=== PATIENT | male | born 1960 | race Caucasian/White ===

== ENCOUNTER 2022-10-22 21:20 | Emergency (ER) | payer MEDICARE, OTHER, SELFPAY ==
--- NOTE | 2022-10-22 | ECG_ITS ---
Test Reason : DVT Blood Pressure : / mmHG Vent. Rate : 106 BPM Atrial Rate : 106 BPM P-R Int : 176 ms QRS Dur : 100 ms QT Int : 350 ms P-R-T Axes : 071 069 035 degrees QTc Int : 464 ms Sinus tachycardia Otherwise normal ECG No previous ECGs available Referred By: Generic ED Physician Electronically Signed By:DANITA WALSH MD
--- NOTE | ~2022-10-22 | US_ITS ---
EXAMINATION: US VENOUS ULTRASOUND WITH DOPPLER LOWER EXTREMITY, RIGHT CLINICAL INFORMATION: Edema and pain COMPARISON: None available. TECHNIQUE: Ultrasound of the deep veins is performed from the hip to the calf with compression sonography and color and pulse Doppler assessment. Spectral analysis with color-flow imaging is performed. FINDINGS: There is normal venous compression and respiratory variation and augmented flow. The visualized common femoral vein, superficial femoral vein, profunda femoral vein, popliteal vein, and the trifurcation region shows no evidence of deep venous thrombosis. There is no significant popliteal fossa cyst. If the patient's symptoms persist, followup ultrasound in 5 days 7 days might be of value to exclude proximal propagation from a non-visualized calf vein. US/US venous duplex LE RT IMPRESSION: No DVT demonstrated in the right lower extremity.
--- NOTE | ~2022-10-22 | US_ITS ---
EXAMINATION: US ARTERIAL DUPLEX LOWER EXTREMITY, RIGHT CLINICAL INFORMATION: Pain COMPARISON: None TECHNIQUE: Grayscale and color Doppler sonographic evaluation with spectral analysis of the right lower extremity FINDINGS: RIGHT (PSV/Waveform): * IS ANALYST: 119 cm/s, triphasic * PFA: 67 cm/s, biphasic * Proximal SFA: 153 cm/s, monophasic * Mid SFA: 128 cm/2, monophasic * Distal SFA: 151 cm/s, monophasic * Popliteal: 132 cm/s, monophasic * CASINO DUTY MANAGER: 113 cm/s, monophasic US/US arterial duplex LE RT IMPRESSION: * Patent right lower extremity arteries. * No hemodynamically significant stenosis evident.
--- NOTE | ~2022-10-22 | XR_ITS ---
EXAMINATION: XR CHEST CLINICAL INFORMATION: Possible clots COMPARISON: None available. TECHNIQUE: 2 views of the chest were obtained. FINDINGS: Normal symmetric lung volumes. No parenchymal consolidation. No pleural effusion. No pneumothorax. Cardiomediastinal silhouette and pulmonary vascularity are within normal limits. No acute osseous abnormalities. XR/XR chest 2V IMPRESSION: No acute findings
[2022-10-22 21:22] VITALS: BP 165/94; PULSE 108; RESP 18; TEMP 36.1; O2SAT 98; BMI 24.4
[2022-10-22 22:26] LABS: MANUAL DIFF FLAG NO
[2022-10-22 22:32] LABS: Basophils Percent Auto 0.4 % (0-2); Eosinophils Absolute Auto 0.3 X10*3/uL (0.0-0.4); Eosinophils Percent Auto 3.6 % (0-4); Hematocrit 42.2 % (42.0-52.0); Hemoglobin 14.4 g/dl (14.0-18.0); Imm Gran Abs Auto 0.01 X10*3/uL (0.00-0.03); Imm Gran Pct Auto 0.1 % (0.0-0.4); Lymphocytes Absolute Auto 1.7 X10*3/uL (1.2-4.9); Lymphocytes Percent Auto 22.9 % (20-40); Mean Corpuscular HGB Conc 34.1 g/dl (31.0-36.0); Mean Corpuscular Hemoglobin 31.2 pg (27.0-33.0); Mean Corpuscular Volume 91.3 fL (80.0-98.0); Mean Platelet Volume 9.9 fL (9.4-12.4); Monocytes Absolute Auto 0.7 X10*3/uL (0.1-1.2); Monocytes Percent Auto 9.8 % (2-11); Neutrophils Absolute Auto 4.6 x10*3/uL (2.0-8.3); Neutrophils Percent Auto 63.2 % (45-73); Platelet Count 197 X10*3/uL (160-400); Red Blood Count 4.62 X10*6/uL (4.60-5.80); Red Cell Distribution Width 13.2 % (11.0-16.0); White Blood Count 7.2 X10*3/uL (4.8-10.8)
[2022-10-22 22:36] VITALS: BP 145/83; PULSE 108; RESP 17; TEMP 36.9; O2SAT 95
[2022-10-22 22:43] LABS: Anion Gap 14 (12-20); Blood Urea Nitrogen 21 mg/dL (9-16); Calcium 9.5 mg/dL (8.4-10.2); Carbon Dioxide 25 mmol/L (22-29); Chloride 106 mmol/L (96-108); Creatinine Clr Calc Pharmacy 88.1; Estimated Glomerular Filt Rate > 60; Glucose Random 78 mg/dL (60-115); Potassium 3.7 mmol/L (3.3-5.1); Sodium 141 mmol/L (135-145)
[2022-10-22 22:52] LABS: Troponin-I High Sensitivity 4.9 ng/L (<3.5-35.0)
--- NOTE | 2022-10-22 23:01 | ED_ITS ---
HPI - General Adult General Chief complaint: General Medical Stated complaint: possible DTV Time Seen by Provider: 10/22/22 23:01 Source: patient Mode of arrival: ambulatory Limitations: no limitations History of Present Illness HPI narrative: Patient is a 61 year old assigned male at with a history of a recent venous procedure on his right lower leg presenting to the emergency department today with right lower leg pain and swelling. Patient states that on 10/19/2022 he had a venous procedure on his right lower leg and everything was fine however, on 10/21/2022 he began to have swelling and redness. Patient states that he is on a daily eliquis of 2.5mg. Patient states that his vascular surgeon follows through [facility]. Patient denies any dizziness, lightheadedness, abdominal pain, nausea, vomiting, fever, chills, blurry vision, double vision, loss of vision, chest pain, difficulty breathing, shortness of breath, back pain, night sweats, pain with urination, increased urinary frequency, increased urinary urgency, blood in his urine or stool, syncope or a near syncopal episode, recent trauma or falls, bowel incontinence, bladder incontinence, bowel retention, bladder retention, or any other complaints at this time. Onset (ago): day(s) (2) Location: right and lower extremity Radiation: non-radiation Severity: mild Severity scale (1-10): 3 Quality: aching and dull Pain Consistency: constant Relieving factors: none Exacerbating factors: none Associated symptoms: denies other symptoms Treatments prior to arrival: none Related Data Previous Rx's Medication Instructions Recorded doxycycline hyclate 100 mg tablet 100 mg PO BID 7 days #14 tabs 10/23/22 prednisone 20 mg tablet 20 mg PO DAILY 7 days #7 tabs 10/23/22 triamcinolone acetonide 0.1 % 1 appl topical DAILY #400 grams 10/23/22 topical cream Allergies Allergy/AdvReac Type Severity Reaction Status Date / Time No Known Allergies Allergy Verified 10/22/22 23:11 Review of Systems Constitutional: Constitutional: Reports no additional constitutional complaints, Denies chills, Denies fever(s) and Denies night sweats Eyes: Eyes: Reports no additional eye complaints, Denies blurry vision, Denies change in vision, Denies diplopia, Denies eye discharge, Denies loss of vision and Denies eye pain ENT: Denies dizziness Cardiovascular: Cardiovascular: Reports no additional cardiovascular complaints, Denies chest pain, Denies lightheadedness, Denies Loss of Consciousness and Denies dyspnea Respiratory: Respiratory: Reports no additional respiratory complaints and Denies dyspnea Gastrointestinal: Gastrointestinal: Reports no additional gastrointestinal complaints, Denies abdominal pain, Denies melena, Denies hematochezia, Denies change in bowel habits and Denies change in stool character Genitourinary: Genitourinary: Reports no additional male genitourinary comp laints, Denies hematuria, Denies oliguria, Denies difficulty urinating, Denies dysuria, Denies urinary frequency, Denies urinary hesitancy, Denies urinary incontinence and Denies urinary urgency Musculoskeletal: Musculoskeletal: Reports no additional musculoskeletal complaints, Denies numbness and Denies tingling Integumentary/Breasts: Comments: right lower leg swelling, redness, and warmth Neurologic: Denies dizziness, Denies loss of vision, Denies numbness and Denies tingling Psychiatric: Psychiatric: Reports no additional psychiatric complaints Endocrine: Endocrine: Reports no additional endocrine complaints Hematologic/Lymphatic: Hematologic/Lymphatic: Reports no additional hematologic/lymphatic complaints Allergic/Immunologic: Allergic/Immunologic: Reports no additional allergic/immunologic complaints PMFSH Past Medical History Attestation statement: The following information was validated with the patient. Source: old records reviewed and nursing notes reviewed Social History Social History Advance Directives: No Advance Directives Information Provided: No Physical Exam ED Vital Signs: Vital Signs - 24 hr 10/22/22 21:22 10/22/22 22:36 Temperature 97 F 98.4 F Pulse Rate 108 H 108 H Respiratory Rate 18 17 Blood Pressure 165/94 H 145/83 H Pulse Oximetry 98 95 Oxygen Delivery Method Room Air Room Air BMI result Body Mass Index 24.4 Const General: cooperative, no acute distress, alert and awake Nutritional Appearance: well nourished Orientation/consciousness: patient oriented x3 Limitations: no limitations HENMT Head: Yes normal to inspection and Yes atraumatic Ears: hearing grossly normal bilaterally and external ears normal General nose exam: Normal external nose present, no nasal discharge noted and no epistaxis Face and sinus: Yes normal facial exam, No abrasion and No laceration Mouth: Normal oral and palatal mucosa present, no drooling and no muffled voice Eyes General: appearance normal, both eyes and all related structures Periorbital: periorbital findings normal Eyelids: Yes eyelids normal Conjunctivae: conjunctivae normal Pupils: Equal, round and reactive pupils present EOM: EOMs intact bilaterally Neck Neck: Yes normal visual inspection, Yes full ROM and Yes no lymphadenopathy Chest Chest palpation & inspection: normal inspection of the chest Resp Effort & Inspection: normal respiratory effort and able to speak in complete sentences GI Inspection: Yes normal to inspection Neuro General: patient oriented x3 and moves all extremities Cranial nerves: Yes Equal, round and reactive pupils present Cognition (Neuro): normal cognition Motor exam (neuro): 5/5 motor strength present throughout Sensory Exam: Normal double simultaneous stimulation for sensation Coordination: [id number] test normal Extrem Other: minimal swelling, warmth, and erythema present to the right lower leg General: Yes full ROM and Yes capillary refill normal Psych Appearance: grossly normal Mental Status: mental status grossly normal Affect: normal affect Attitude: cooperative Thought process: Normal thought process present Thought content: Normal thought content present Insight: Good insight present (Psych) Medical Decision Making Medical Decision Making MDM Narrative: Patient is a 61 year old assigned male at with a history of recent venous procedure presenting to the emergency department today with right lower leg redness, warmth, and swelling. Patient's physical exam was as noted in the physical exam portion of this chart. Patient's blood work was unremarkable. Patient's RLE US showed no DVT and showed good arterial flow. I explained my physical exam findings as well as all test results to the patient. I answered all questions asked by the patient. Patient's clinical presentation is consistent with cellulitis vs. phlebitis. Patient also requested triamsinolone cream for an unrelated issue. I stressed the importance of the patient taking his medication as prescribed. I stressed the importance of the patient following up with his primary care provider and his vascular surgeon. I stressed the importance of the patient returning to the emergency department immediately if his symptoms were to worsen or if he were to develop any dizziness, shortness of breath, difficulty breathing, chest pain, blurry vision, loss of vision, nausea, vomiting, abdominal pain, fever, chills, back pain, or any other complaints. Patient verbalized agreement and understanding with this treatment plan and discharge. Differential Diagnosis Differential Diagnoses: The differential diagnosis associated with the presentation includes right lower leg cellulitis, right lower leg phlebitis Admission/Observation Consideration of admission/observation: Escalation of care including admission/observation considered Patient would have been admitted to the hospital had his work up had any findings where hospital admission was appropriate. Lab Data MDM Lab Attestation statement: I reviewed the patient's lab results. My interpretation of these studies and their corresponding values is that they are grossly normal. 10/22/22 22:18 10/22/22 22:18 Labs: Lab Results 10/22/22 10/22/22 10/22/22 Range/Units 22:18 22:18 22:18 WBC 7.2 (4.8-10.8) X10*3/uL RBC 4.62 (4.60-5.80) X10*6/uL Hgb 14.4 (14.0-18.0) g/dl Hct 42.2 (42.0-52.0) % MCV 91.3 (80.0-98.0) fL MCH 31.2 (27.0-33.0) pg MCHC 34.1 (31.0-36.0) g/dl RDW 13.2 (11.0-16.0) % Plt Count 197 (160-400) X10*3/uL MPV 9.9 (9.4-12.4) fL Immature Gran % (Auto) 0.1 (0.0-0.4) % Neut % (Auto) 63.2 (45-73) % Lymph % (Auto) 22.9 (20-40) % [place] % (Auto) 9.8 (2-11) % Eos % (Auto) 3.6 (0-4) % Baso % (Auto) 0.4 (0-2) % Lymph # (Auto) 1.7 (1.2-4.9) X10*3/uL [place] # (Auto) 0.7 (0.1-1.2) X10*3/uL Eos # (Auto) 0.3 (0.0-0.4) X10*3/uL Baso # (Auto) 0.0 (0.0-0.2) X10*3/uL Abs Immat Gran (auto) 0.01 (0.00-0.03) X10*3/uL Absolute Neuts (auto) 4.6 (2.0-8.3) x10*3/uL Absolute Nucleated RBC 0.000 (0.0-0.012) X10*3/uL Nucleated RBC % (auto) 0.0 (0.0-0.2) /100WBC PT 12.0 (10.0-13.1) SEC INR 1.0 (0.9-1.1) Sodium 141 (135-145) mmol/L Potassium 3.7 (3.3-5.1) mmol/L Chloride 106 (96-108) mmol/L Carbon Dioxide 25 (22-29) mmol/L Anion Gap 14 (12-20) BUN 21 H (9-16) mg/dL Creatinine 0.99 (0.5-1.4) mg/dL Estim Creat Clear Calc 88.1 Estimated GFR > 60 Random Glucose 78 (60-115) mg/dL Calcium 9.5 (8.4-10.2) mg/dL Troponin I High Sens (<3.5-35.0) ng/L 10/22/22 Range/Units 22:18 WBC (4.8-10.8) X10*3/uL RBC (4.60-5.80) X10*6/uL Hgb (14.0-18.0) g/dl Hct (42.0-52.0) % MCV (80.0-98.0) fL MCH (27.0-33.0) pg MCHC (31.0-36.0) g/dl RDW (11.0-16.0) % Plt Count (160-400) X10*3/uL MPV (9.4-12.4) fL Immature Gran % (Auto) (0.0-0.4) % Neut % (Auto) (45-73) % Lymph % (Auto) (20-40) % [place] % (Auto) (2-11) % Eos % (Auto) (0-4) % Baso % (Auto) (0-2) % Lymph # (Auto) (1.2-4.9) X10*3/uL [place] # (Auto) (0.1-1.2) X10*3/uL Eos # (Auto) (0.0-0.4) X10*3/uL Baso # (Auto) (0.0-0.2) X10*3/uL Abs Immat Gran (auto) (0.00-0.03) X10*3/uL Absolute Neuts (auto) (2.0-8.3) x10*3/uL Absolute Nucleated RBC (0.0-0.012) X10*3/uL Nucleated RBC % (auto) (0.0-0.2) /100WBC PT (10.0-13.1) SEC INR (0.9-1.1) Sodium (135-145) mmol/L Potassium (3.3-5.1) mmol/L Chloride (96-108) mmol/L Carbon Dioxide (22-29) mmol/L Anion Gap (12-20) BUN (9-16) mg/dL Creatinine (0.5-1.4) mg/dL Estim Creat Clear Calc Estimated GFR Random Glucose (60-115) mg/dL Calcium (8.4-10.2) mg/dL Troponin I High Sens 4.9 (<3.5-35.0) ng/L Independent Interpretation I performed an independent interpretation of an: EKG and Ultrasound Interpretation: My interpretation is in agreement with the radiologist's impression of these imaging studies. - EXAMINATION: US ARTERIAL DUPLEX LOWER EXTREMITY, RIGHT CLINICAL INFORMATION: Pain COMPARISON: None TECHNIQUE: Grayscale and color Doppler sonographic evaluation with spectral analysis of the right lower extremity FINDINGS: RIGHT (PSV/Waveform): *? APPRENTICE PATTERN MAKER: 119 cm/s, triphasic *? PFA: 67 cm/s, biphasic *? Proximal SFA: 153 cm/s, monophasic *? Mid SFA: 128 cm/2, monophasic *? Distal SFA: 151 cm/s, monophasic *? Popliteal: 132 cm/s, monophasic *? ENERGY AUDITOR: 113 cm/s, monophasic US/US arterial duplex LE RT IMPRESSION: *? Patent right lower extremity arteries. *? No hemodynamically significant stenosis evident. Dictated By: Karlos Potts MD Signed By: Electronically signed by Karlos Potts MD 10/23/22 0140 EXAMINATION:? US VENOUS ULTRASOUND WITH DOPPLER LOWER EXTREMITY, RIGHT CLINICAL INFORMATION:? Edema and pain COMPARISON:? None available. TECHNIQUE: Ultrasound of the deep veins is performed from the hip to the calf with compression sonography and color and pulse Doppler assessment. Spectral analysis with color-flow imaging is performed. FINDINGS: There is normal venous compression and respiratory variation and augmented flow. The visualized common femoral vein, superficial femoral vein, profunda femoral vein, popliteal vein, and the trifurcation region shows no evidence of deep venous thrombosis. ? There is no significant popliteal fossa cyst. If the patient's symptoms persist, followup ultrasound in 5 days 7 days might be of value to exclude proximal propagation from a non-visualized calf vein. US/US venous duplex LE RT IMPRESSION: No DVT demonstrated in the right lower extremity. Dictated By: Karlos Potts MD Signed By: Electronically signed by Karlos Potts MD 10/23/22 0140 EXAMINATION: XR CHEST CLINICAL INFORMATION: Possible clots COMPARISON: None available. TECHNIQUE: 2 views of the chest were obtained. FINDINGS: Normal symmetric lung volumes. No parenchymal consolidation. No pleural effusion. No pneumothorax.? Cardiomediastinal silhouette and pulmonary vascularity are within normal limits. No acute osseous abnormalities. XR/XR chest 2V IMPRESSION: No acute findings Dictated By: Karlos Potts MD Signed By: Electronically signed by Karlos Potts MD 10/22/22 3723 Vent. Rate: 106 BPM ? ? Atrial Rate: 106 BPM P-R Int: 176 ms? QRS Dur: 100 ms QT Int: 350 ms ? ? ? P-R-T Axes: 071 069 035 degrees QTc Int: 464 ms ? Sinus tachycardia Otherwise normal ECG No previous ECGs available DD/ [id number] Discharge Plan Discharge Clinical Impression: Cellulitis, Phlebitis Patient Disposition: Home, Self-Care Instructions: Cellulitis (DC), Phlebitis (ED) Additional Instructions: Follow up with your primary care provider and your vascular surgeon. Return to the emergency department immediately if your symptoms worsen or if you develop any dizziness, shortness of breath, difficulty breathing, chest pain, blurry vision, loss of vision, nausea, vomiting, abdominal pain, fever, chills, back pain, or any other complaints. Prescriptions: New prednisone 20 mg tablet 20 mg PO DAILY 7 Days Qty: 7 0RF doxycycline hyclate 100 mg tablet 100 mg PO BID 7 Days Qty: 14 0RF triamcinolone acetonide 0.1 % cream 1 appl topical DAILY Qty: 400 0RF Referrals: Javy Durbin MD [Primary Care Provider] - Print Language: Mozambican
[2022-10-23 02:07] VITALS: BP 152/85; PULSE 97; RESP 17; TEMP 36.2; O2SAT 98
[2022-10-23] MEDS: predniSONE 20 MG TABLET PO (02:11)
[2022-10-23] MEDS: Doxycycline Monohydrate 100 MG CAPSULE PO (02:11)
--- NOTE | 2022-10-23 02:18 | PC.NURSE ---
pt calm and cooperative. pt medicated according to mar. pt ambulatory at discharge. vss. pt provided with discharge packet. pt verbalized understanding of discharge plan
== END 2022-10-23 02:19 | disposition home or self-care (01) ==
PROVIDERS: Emergency Provider Emergency Medicine; PCP Internal Medicine
DX: L03.115 Cellulitis of right lower limb (principal); I80.3 Phlebitis and thrombophlebitis of lower extremities, unspecified; M79.661 Pain in right lower leg; Z79.01 Long term (current) use of anticoagulants
CPT/HCPCS: 36415; 71046; 80048; 84484; 85025; 85610; 93005; 93926; 93971; 99284

== ENCOUNTER 2022-12-08 16:34 | Emergency (ER) | payer MEDICARE, OTHER, SELFPAY ==
--- NOTE | ~2022-12-08 | XR_ITS ---
X-RAY RIGHT WRIST X-RAY LEFT WRIST CLINICAL HISTORY: Fall onto outstretched hands. COMPARISON: No relevant prior studies are available for comparison. TECHNIQUE: 4 views of each wrist. FINDINGS: Right wrist: Subtle lucencies overlying the triquetrum on the lateral view, in which a nondisplaced fracture could be present. No evidence of displaced fractures or subluxation. Mild multifocal degenerative osteoarthritis. No unexpected radiopaque foreign bodies. Left wrist: No acute fractures or malalignment. Mild multifocal degenerative osteoarthritis. No unexpected radiopaque foreign bodies. XR/XR wrist LT 2V IMPRESSION: 1. Subtle lucencies overlying the right triquetrum on the lateral view, in which a nondisplaced fracture could be present. Correlate for point tenderness. 2. No acute fractures or malalignment in the left wrist.
--- NOTE | ~2022-12-08 | XR_ITS ---
EXAMINATION: XR LUMBOSACRAL SPINE CLINICAL INFORMATION: Fall, pain. COMPARISON: CT abdomen/pelvis 07/02/2018. TECHNIQUE: Three views of the lumbosacral spine. FINDINGS: No evidence of acute compression deformity or traumatic subluxation. Moderate intervertebral disc height loss with facet arthropathy from L3 through S1 leading to neural foraminal encroachment and central canal stenosis. SI joints are symmetric. Nonspecific gastric distention. No significant paraspinal soft tissue abnormality. XR/XR lumbar spine 2-3V IMPRESSION: 1. No acute compression deformity or malalignment. 2. Moderate lower lumbar spondylosis with neural foraminal encroachment and central canal stenosis, correlation with an MRI of the lumbar spine could be obtained as clinically indicated.
--- NOTE | ~2022-12-08 | XR_ITS ---
X-RAY RIGHT WRIST X-RAY LEFT WRIST CLINICAL HISTORY: Fall onto outstretched hands. COMPARISON: No relevant prior studies are available for comparison. TECHNIQUE: 4 views of each wrist. FINDINGS: Right wrist: Subtle lucencies overlying the triquetrum on the lateral view, in which a nondisplaced fracture could be present. No evidence of displaced fractures or subluxation. Mild multifocal degenerative osteoarthritis. No unexpected radiopaque foreign bodies. Left wrist: No acute fractures or malalignment. Mild multifocal degenerative osteoarthritis. No unexpected radiopaque foreign bodies. XR/XR wrist RT 2V IMPRESSION: 1. Subtle lucencies overlying the right triquetrum on the lateral view, in which a nondisplaced fracture could be present. Correlate for point tenderness. 2. No acute fractures or malalignment in the left wrist.
--- NOTE | 2022-12-08 16:48 | ED_ITS ---
HPI - General Adult General Chief complaint: Back Pain/Injury Stated complaint: Fall Time Seen by Provider: 12/08/22 17:41 Source: patient, RN notes reviewed and old records reviewed Mode of arrival: ambulatory History of Present Illness HPI narrative: 62-year-old male with a past medical history spinal injury & herniated discs, baseline wears bilateral LE braces/ambulates with canes, presenting to the ED complaining of bilateral wrist and low back pain s/p mechanical slip and fall last night around midnight. States did the splits caught himself with bilateral wrists, denies head trauma or LOC. Was able to get himself off the ground. Denies radiation of pain down lower extremities, numbness/tingling, urinary incontinence/retention, fever Onset (ago): hour(s) Related Data Previous Rx's Medication Instructions Recorded doxycycline hyclate 100 mg tablet 100 mg PO BID 7 days #14 tabs 10/23/22 prednisone 20 mg tablet 20 mg PO DAILY 7 days #7 tabs 10/23/22 triamcinolone acetonide 0.1 % 1 appl topical DAILY #400 grams 10/23/22 topical cream Allergies Allergy/AdvReac Type Severity Reaction Status Date / Time oxycodone Allergy Unknown Verified 12/08/22 17:36 Review of Systems Review of Systems: Constitutional: No Fever, No Chills ENT/Mouth: No Ear Pain, No Nasal Congestion, No sore throat, No Rhinorrhea, No Swallowing Difficulty Cardiovascular: No Chest Pain, No SOB Respiratory: No Cough, No Sputum, No Wheezing Gastrointestinal: No Nausea, No Vomiting, No Abdominal pain Genitourinary: No Dysuria, No Urinary Frequency, No Hematuria, No Urinary Incontinence/retention, No Flank Pain Musculoskeletal: + joint pain, No Myalgias, + Joint Swelling Skin: No Skin Lesions, No rash Neuro: No Weakness, No Numbness, No Paresthesias Yes all other systems are reviewed and are negative Constitutional: Constitutional: Reports as per HPI Neurologic: Denies Sensory deficit (Neuro) [facility] Past Medical History Attestation statement: The following information was validated with the patient. Source: old records reviewed Social History Social History Advance Directives: No Advance Directives Information Provided: No Physical Exam ED Vital Signs: Vital Signs - 24 hr 12/08/22 16:49 Temperature 96.9 F Pulse Rate 104 H Respiratory Rate 18 Blood Pressure 116/83 Pulse Oximetry 96 Oxygen Delivery Method Room Air BMI result Body Mass Index 33.5 Const General: cooperative, healthy appearing and no acute distress Orientation/consciousness: patient oriented x3 Limitations: no limitations HENMT Head: Yes normal to inspection and Yes atraumatic Ears: hearing grossly normal bilaterally General nose exam: Normal external nose present Face and sinus: Yes normal facial exam Eyes General: appearance normal, both eyes and all related structures EOM: EOMs intact bilaterally Neck Neck: Yes normal visual inspection and Yes no meningeal signs Resp Effort & Inspection: normal respiratory effort and no respiratory distress Cardio Rate: regular rate GI Inspection: Yes normal to inspection Palpation (GI): Soft to palpation, nontender, no guarding and not rigid General: Yes no CVA tenderness Back/Spine/Pelvis Other: No midline cervical/thoracic/lumbar spinous tenderness/step-off or deformity. + mild right-sided paraspinal tenderness to palpation. Low back pain not reproducible to palpation Back: no CVA tenderness Skin Rashes: no rashes Wounds: no wounds Neuro Other: Strength intact throughout. No saddle anesthesia. Sensation intact to light touch. Neurovascular intact distally General: patient oriented x3, gait normal (At patient's baseline with bilateral canes), tone normal, moves all extremities and no meningeal signs Gait exam (Neuro): Normal gait present Motor exam (neuro): 5/5 motor strength present throughout (Chronic LE weakness from old injury, unchanged) Sensory Exam: No Sensory deficit (Neuro) Extrem Other: Right wrist with mild swelling, diffusely tender with snuffbox tenderness. ROM intact with discomfort. NV intact. Left wrist without noted deformity, nontender, full range of motion intact. NV intact Bilateral shoulder/humeral/elbow and forearms nontender Course Course Course Narrative: This is a rapid medical exam: Additional HPI, ROS, PE not included below will be deferred to primary provider. Patient is a 62-year-old male with history of spinal cord injury 38 years prior presenting to the emergency department with complaint of bilateral wrist pain and lower back pain after a slip and fall in the middle of the night last night. Denies hitting his head or losing consciousness, is not anticoagulated. States that his foot slipped on the carpet as he got out of the bed to go to the bathroom. Reports difficulty with mobility at baseline related to his injury. Denies any numbness or tingling. Plan: lumbar and wrist x-rays XR lumbar spine 2-3V IMPRESSION: 1.? No acute compression deformity or malalignment. 2.? Moderate lower lumbar spondylosis with neural foraminal encroachment and central canal stenosis, correlation with an MRI of the lumbar spine could be obtained as clinically indicated. > suspect findings are old with a known prior back injury and no red flag symptoms >> patient with good rectal tone and perianal sensation. XR wrist LT 2V /XR wrist RT 2V IMPRESSION: 1.? Subtle lucencies overlying the right triquetrum on the lateral view, in which a nondisplaced fracture could be present. Correlate for point tenderness. 2.? No acute fractures or malalignment in the left wrist. > concern for triquetral fracture > ideally would apply orthoglass volar splint however patient ambulates at baseline with bilateral canes, thus this would severely inhibit him, this was discussed, agreed to apply a Velcro volar splint Results discussed with patient including worrisome signs and symptoms and strict return precautions, and when to return to the emergency department. They verbalized understanding and feel safe for discharge at this time. Procedures Orthopedic Splinting/Casting Injury #1: Side: right Upper Extremity Injury Location: wrist and hand Upper Extremity Immobilizer: volar splint Medical Decision Making Medical Decision Making MDM Narrative: 62-year-old male with a past medical history spinal injury & herniated discs, baseline wears bilateral LE braces/ambulates with canes, presenting to the ED complaining of bilateral wrist and low back pain s/p mechanical slip and fall last night around midnight. On exam mildly tachycardic likely from discomfort physical exam as above, no midline spinous tenderness throughout, no red flag symptoms, ambulating at baseline, right wrist with snuffbox tenderness. No appreciable deformities. Concern for MSK pain/strain vs wrist fracture/scaphoid injury. Low suspicion for cauda equina/cord compression, renal stone/pyelo, no evidence of infection, unlikely ICH Plan: Lumbar and bilateral wrist x-ray Please refer to course for remaining clinical decision making, interpretation of labs/imaging results, and discussions with consultants and/or family members. Differential Diagnosis Differential Diagnoses: The differential diagnosis associated with the presentation includes As above Admission/Observation Consideration of admission/observation: Escalation of care including adm ission/observation considered Radiology Impression Discussion of test interpretation with radiology: I have reviewed the radiologist's reading. External Record Review External record reviewed: Inpatient record, Office record, Outpatient record, Prior outpatient labs, Prior outpatient radiology, Primary care record and Outside ED record Tests considered The following testing was considered but not selected: As above Prescription Management I considered prescription management with: Pain Medication Discharge Plan Discharge Clinical Impression: Fracture of triquetral bone of wrist, Central stenosis of spinal canal Patient Disposition: Home, Self-Care Instructions: Wrist Fracture in Adults (ED), Back Pain (ED) Additional Instructions: Your back x-ray does show some neural foraminal encroachment & central canal stenosis, it is recommended you have an MRI, follow up with her primary care doctor and intelligence research specialist for this IF YOU DEVELOP WEAKNESS, PERSISTENT OR WORSENING PAIN, URINARY INCONTINENCE OR RETENTION RETURN TO THE ED IMMEDIATELY Your wrist x-ray is concerning for a triquetrum fracture. Please were splint at all times, only take off to shower You need to follow-up with orthopedics Take Tylenol /Motrin for pain Prescriptions: No Action prednisone 20 mg tablet 20 mg PO DAILY 7 Days Qty: 7 0RF doxycycline hyclate 100 mg tablet 100 mg PO BID 7 Days Qty: 14 0RF triamcinolone acetonide 0.1 % cream 1 appl topical DAILY Qty: 400 0RF Referrals: [facility] [Provider Group] - 1 week [facility] [Outside] Darvin Quach MD, PhD [Physician] - 3 days
[2022-12-08 16:49] VITALS: BP 116/83; PULSE 104; RESP 18; TEMP 36.1; O2SAT 96; BMI 33.5
== END 2022-12-08 18:45 | disposition home or self-care (01) ==
PROVIDERS: Emergency Provider Emergency Medicine; PCP Internal Medicine
DX: S62.101A Fracture of unspecified carpal bone, right wrist, initial encounter for closed fracture (principal); M54.50 Low back pain, unspecified; M48.00 Spinal stenosis, site unspecified; X58.XXXA Exposure to other specified factors, initial encounter; Y93.9 Activity, unspecified; Y92.9 Unspecified place or not applicable; Y99.9 Unspecified external cause status; Z79.899 Other long term (current) drug therapy
CPT/HCPCS: 29125; 72100; 73100; 99282; 99283

== ENCOUNTER 2023-10-10 15:30 | Outpatient (REF) | payer MEDICARE, SELFPAY | END 2023-10-10 15:31 | disposition home or self-care (01) | LOC: HO.MMNH1L 15:30 | PROVIDERS: Visit Provider Family Medicine | DX: Z13.89 Encounter for screening for other disorder (principal) | CPT/HCPCS: 87086 ==

== ENCOUNTER 2023-10-30 12:20 | Outpatient (AMB) | payer MEDICARE, OTHER, SELFPAY ==
[2023-10-30 12:23] VITALS: BP 154/90; PULSE 132; TEMP 36.7; O2SAT 97; BMI 37.1
--- NOTE | 2023-10-30 12:23 | MHC.OFFWIV ---
Intake Vital Signs 10/30/23 12:23 Height 5 ft 11 in Weight 266 lb 4 oz BMI 37.1 BP 154/90 H Blood Pressure Location Rt brachial Position Sitting Pulse 132 H Pulse Source Pulse Oximeter Temp 98.0 F Temp Source Temporal Artery Scan Pulse Oximetry (%) 97 Oxygen Delivery Method Room Air Intake Visit Reasons: Edema Intake Note: Pt presents to the office today for Edema. Pt states he has swelling in his legs and unresolved cellulitis. Pt states he was at [facility] for 42 days. Pt states his last day at [facility] was 10/16/23. Patient Tobacco Use Status: Never used Tobacco Allergies oxycodone Allergy (Verified 10/30/23 12:38) Unknown Medication List - Last Reconciled 10/30/23 by Yeni Payan, SANA- bisoprolol fumarate mg PO triamcinolone acetonide 0.1% 1 appl topical DAILY HPI HPI Comments History of Present Illness Details Here today for BLE Acute on chronic reports BLE fractures in August 2023 Tx in ED for BLE cellulitis and then was admitted @ [facility] for this Has been to SNF x 2 with one hospitalization in between stays for the same thing Is not managed closely Last PCP visit 02/2023 Has open areas bilat lower ext he reports being caused by machine to help his edema has been applying xerofrom and dcd to RLE Denies fever, chills. HTN - has been w/o his BB since d/c from SNF. [facility] Social History Household Members: Family Household Members Other:: Mother, Sister Housing: House Alcohol intake: current Alcohol intake frequency: holidays/special occasions only Patient Tobacco Use Status: Never used Tobacco Review of Systems Const All systems reviewed & are unremarkable except as noted in HPI and below Physical Exam Const Other: awake alert NAD edema ble 2+ vascular ulcer posterior lower legs bilat. Right: ulcer bed yellow, edges pink w/ some granulation, periskin is erythematous and warm to the touch. Left: ulcer bed is red, no drainage, no erythema Extrem Upper/lower leg/hip images: 1. ulcer 2. ulcer Assessment & Plan Assessment & Plan (1) HTN (hypertension): Code(s): I10 - Essential (primary) hypertension Qualifiers: Hypertension type: primary hypertension Qualified Code(s): I10 - Essential (primary) hypertension Plan: . (2) Atherosclerotic PVD with ulceration: Code(s): I70.209 - Unspecified atherosclerosis of [place] arteries of extremities, unspecified extremity; L98.499 - Non-pressure chronic ulcer of skin of other sites with unspecified severity Qualifiers: Peripheral atherosclerosis location: lower extremity Peripheral atherosclerosis artery type: [place] artery Laterality: bilateral Lower extremity ulceration location: calf Qualified Code(s): I70.232 - Atherosclerosis of [place] arteries of right leg with ulceration of calf; I70.242 - Atherosclerosis of [place] arteries of left leg with ulceration of calf Plan: . (3) Cellulitis of right lower extremity: Code(s): L03.115 - Cellulitis of right lower limb Plan . This note is constructed using voice recognition software. While every effort has been made to ensure accuracy in hat lining paster, still errors may have been included Sometimes, these errors may affect the content or meaning of the given sentence . Total time spent caring for the patient today was 40 minutes. This includes time spent before the visit reviewing the chart, time spent during the visit, and time spent after the visit on documentation Medications: New bisoprolol fumarate 5 mg PO BID 60 tabs 0RF hydrochlorothiazide 25 mg PO DAILY 30 tabs 0RF doxycycline hyclate 100 mg PO BID 7 days 14 caps 0RF Discontinued doxycycline hyclate Discontinued Reason: Patient no longer taking 100 mg PO BID 7 days 14 tabs 0RF prednisone Discontinued Reason: Patient no longer taking 20 mg PO DAILY 7 days 7 tabs 0RF Patient Instructions: The plan today will be to refill his bisoprolol at the same dose 5 mg p.o. b.i.d.. Start hydrochlorothiazide 25 mg p.o. daily. To control his blood pressure and to help his edema. treat the cellulitis of the right lower extremity doxycycline 100 mg p.o. b.i.d. I have advised him to use Xeroform gauze followed by dry clean dressing. He likely will need a referral to the wound care center. However he needs to establish care with a primary care provider. I have asked for him to set up an appointment in 1 week with 1 of our providers for a close follow up and also to establish care. Has several chronic conditions of which we will need close and chronic management. Coding Level of Care Code New Pt Level 4 (62482) Diagnoses Primary hypertension I10 Hypertension type: primary hypertension Atherosclerosis of [place] artery of both lower extremities with bilateral ulceration of calves I70.232; I70.242 Peripheral atherosclerosis location: lower extremity Peripheral atherosclerosis artery type: [place] artery Laterality: bilateral Lower extremity ulceration location: calf Cellulitis of right lower extremity L03.115
== END 2023-10-30 13:08 | disposition home or self-care (01) ==
PROVIDERS: PCP Internal Medicine; Visit Provider Nurse Practitioner Family
DX: I10 Essential (primary) hypertension (principal); I70.232 Atherosclerosis of native arteries of right leg with ulceration of calf; I70.242 Atherosclerosis of native arteries of left leg with ulceration of calf; L03.115 Cellulitis of right lower limb
CPT/HCPCS: 99204

== ENCOUNTER 2023-11-10 14:17 | Outpatient (AMB) | payer MEDICARE, OTHER, SELFPAY ==
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
[2023-11-10 14:39] VITALS: BP 118/64; BMI 36.0
== END 2023-11-10 15:39 | disposition home or self-care (01) ==
PROVIDERS: PCP Internal Medicine; Visit Provider Internal Medicine
DX: L03.115 Cellulitis of right lower limb (principal); M25.531 Pain in right wrist; M79.641 Pain in right hand; M25.532 Pain in left wrist
CPT/HCPCS: 99204

== ENCOUNTER 2024-01-01 14:41 | Outpatient (AMB) | payer MEDICARE, OTHER, SELFPAY ==
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
[2024-01-01 14:56] VITALS: BP 126/64; PULSE 64; RESP 12; O2SAT 98
== END 2024-01-01 16:02 | disposition home or self-care (01) ==
PROVIDERS: PCP Internal Medicine; Visit Provider Internal Medicine
DX: G95.89 Other specified diseases of spinal cord (principal); G82.20 Paraplegia, unspecified; S81.801D Unspecified open wound, right lower leg, subsequent encounter
CPT/HCPCS: 99214

== ENCOUNTER 2024-02-02 13:40 | Outpatient (AMB) | payer MEDICARE, OTHER, SELFPAY ==
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
[2024-02-02 13:49] VITALS: BP 136/80; PULSE 90; O2SAT 94
== END 2024-02-02 14:51 | disposition home or self-care (01) ==
PROVIDERS: PCP Internal Medicine; Visit Provider Internal Medicine
DX: G95.89 Other specified diseases of spinal cord (principal); K30 Functional dyspepsia; I10 Essential (primary) hypertension

== ENCOUNTER → 2024-02-02 13:40 | Outpatient (BNVA) | payer MEDICARE, OTHER, SELFPAY | PROVIDERS: PCP Internal Medicine; Visit Provider Internal Medicine | DX: G95.89 Other specified diseases of spinal cord (principal); K30 Functional dyspepsia; I10 Essential (primary) hypertension | CPT/HCPCS: 99212 ==

== ENCOUNTER 2024-02-02 15:02 | Outpatient (REF) | payer MEDICARE, OTHER, SELFPAY ==
[2024-02-02 18:36] LABS: Anion Gap 10 (12-20); Blood Urea Nitrogen 17 mg/dL (9-16); Calcium 9.1 mg/dL (8.4-10.2); Carbon Dioxide 25 mmol/L (22-29); Chloride 109 mmol/L (96-108); Estimated Glomerular Filt Rate > 60; Glucose Random 108 mg/dL (60-115); Sodium 140 mmol/L (135-145)
[2024-02-02 18:50] LABS: Folate 6.5 ng/mL (> or = 4.0); Prostate Specific Antigen 2.92 ng/mL (<0.05-4.0); Vitamin B12 272 pg/mL (200-900)
[2024-02-02 18:55] LABS: TSH reflex Free T4 0.61 uIU/mL (0.32-4.0)
== END 2024-02-02 15:03 | disposition home or self-care (01) ==
LOC: HO.WFDLDS 15:02
PROVIDERS: Visit Provider Internal Medicine
DX: G95.89 Other specified diseases of spinal cord (principal); K30 Functional dyspepsia; I10 Essential (primary) hypertension; R41.3 Other amnesia; Z79.899 Other long term (current) drug therapy; Z12.5 Encounter for screening for malignant neoplasm of prostate
CPT/HCPCS: 36415; 80048; 82607; 82746; 84153; 84443; 99212

== ENCOUNTER → 2024-03-01 13:00 | Outpatient (BNVA) | payer MEDICARE, OTHER, SELFPAY | PROVIDERS: PCP Internal Medicine; Visit Provider Neurological Surgery ==

== ENCOUNTER 2024-03-06 13:33 | Outpatient (AMB) | payer MEDICARE, OTHER, SELFPAY ==
--- NOTE | 2024-03-06 14:39 | A.SPINEOV_ITS ---
Intake Visit Reasons: Paraplegia Allergies oxycodone Allergy (Verified 02/02/24 13:48) Unknown Assessment & Plan Assessment & Plan (1) Paraparesis: Code(s): G82.20 - Paraplegia, unspecified Category: Medical Plan Dear colleague Thank you for referring Dragan Robbins to the office today with a chief complaint of slowly progressive paraparesis. HPI: This 63-year-old male had a traumatic spinal cord injury more than 3 decades ago resulting in a paraparesis. Over the years the paraparesis have progressed. Initially was able to walk without a cane but in the last 8 years he has to use 2 canes and he may have to transition to a walker in the near future. His sensation is mostly intact. Physical Exam: Very pleasant male. He ambulates with 2 canes. He has a diffuse paraparesis with bilateral footdrop and ankle-foot orthosis. Radiological Studies: MRI spine done at [facility] on 12/27/2023 shows thoracic cord atrophy starting approximately at T8 and a syrinx formation from T10-L1. There are no compressive lesions. Impression/Plan: This patient is suffering from a slowly progressive paraparesis associated with thoracic spinal cord atrophy. It is well known that patients with spinal cord injury can still regress neurologically over time. Unfortunately there is no surgical solution to hold the deterioration. I rev iewed the imaging in detail with the patient and then showed him the abnormalities and related to message that I do not have any surgical options. Thank you for allowing me to participate in your patients care. total time spent was 40 minutes in counseling ,coordination of plan, personal review of imaging, surgical decision making and subsequent plan Darvin Quach MD, PhD Spine Fellowship Trained Neurosurgeon Director, [facility] Coding Level of Care Code New Pt Level 3 (63369) Diagnoses Paraparesis G82.20
== END 2024-03-06 15:04 | disposition home or self-care (01) ==
LOC: HO.HNS 13:33
PROVIDERS: PCP Internal Medicine; Referring Provider Internal Medicine; Visit Provider Neurological Surgery
DX: G82.20 Paraplegia, unspecified (principal)
CPT/HCPCS: 99203

== ENCOUNTER → 2024-03-06 13:33 | Outpatient (BNVA) | payer MEDICARE, OTHER, SELFPAY | PROVIDERS: PCP Internal Medicine; Visit Provider Neurological Surgery | DX: G82.20 Paraplegia, unspecified (principal) | CPT/HCPCS: 99202 ==

== ENCOUNTER → 2024-04-16 14:00 | Outpatient (BNVA) | payer MEDICARE, OTHER, SELFPAY | PROVIDERS: PCP Internal Medicine; Visit Provider Internal Medicine | DX: M25.572 Pain in left ankle and joints of left foot (principal); G89.29 Other chronic pain; G82.20 Paraplegia, unspecified; K30 Functional dyspepsia; I10 Essential (primary) hypertension; Z87.828 Personal history of other (healed) physical injury and trauma; Z79.899 Other long term (current) drug therapy | CPT/HCPCS: 99212 ==

== ENCOUNTER → 2024-04-16 14:00 | Outpatient (AMB) | payer MEDICARE, OTHER, SELFPAY ==
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
[2024-04-16 14:07] VITALS: BP 136/88; PULSE 82; O2SAT 99; BMI 36.5
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
--- OUTSIDE RECORDS SUMMARY | 2024-04-17 21:54 | XMS_ITS | Data Portability ---
Author Organization [facility], [facility] Address [address] [place] [address] Assessment No assessment recorded. Plan of Treatment Reminders Order Date Submit Date Provider Last Modified By Organization Details Last Modified Time Details Appointments None record ed. Lab None record ed. Referral None record ed. Procedures None record ed. Surgeries None record ed. Imaging XR, knee, 4 or more view 024 08/15/[address] Office, [address] [facility], [facility] [address], [place], [address], 4 16:10:43 Medication Orders None record ed. Patient TargetsNo targets recorded. Patient InstructionsNo instructions recorded. Reason for Referral None Reported. Results Created Date Observation Date Name Description Value Unit Range Abnormal Flag Note LastModifiedBy Organization Detail LastModifiedTime 01/06/20 24 03/03/2023 imagi ng/di agnos tic resul t No observ ation record ed. [email or web address] Not Available 12/08 05:01:57 Result Notes None recorded. Problems Name Problem SNOMED Code Status Onset Date Resolution Date Notes Provider Name and Address Organization Details Recorded Time Pain of left knee joint 520260304320328 Active 2023 lily smith, [facility], [facility] 4 15:24:04 Problem Notes None recorded. Procedures Surgical History None recorded. Imaging Results Imaging Date Name Status LastModified by Organiz ation Details LastModified Time 03/03/2023 imaging/diag nostic result completed [email or web address] Information not available 01/06/2024 05:01:57 Procedure Notes None recorded. Medical Equipment None Reported. Allergies Allergen ID Allergen Name Allergen Category Reaction Reaction Severity Criticality Documentation Date Start Date Code Code System Note Provider Name and Address Organization Details Recorded Time 915395 Bactrim medicatio n Not available Not available Not available 08/15/2023 28766 9 RxNorm lily smith [facility], [facility] 4 15:24:46 [id number] Keflex medicatio n Not available Not available Not available 08/15/2023 78412 7 RxNorm lily smith [facility], [facility] 4 15:25:20 56764 oxycodone hydrochlo ride medicatio n Not available Not available Not available 07/10/20232018 38971 RxNorm Not Available [facility] 4 12:09:00 Medications Name Sig Start Date Stop Date Status Note LastModified by Organization Details LastModified Time losartan 50 mg tablet active Not Available Not Available No t Available pilocarpine 5 mg tablet TAKE 2 TABLETS BY MOUTH THREE TIMES DAILY active Not Available Not Available Not Available gabapentin 600 mg tablet TAKE 1 TABLET BY MOUTH FOUR TIMES DAILY active Not Available Not Available Not Available prednisone 20 mg tablet TAKE 1 TABLET BY MOUTH DAILY FOR 7 DAYS active Not Available Not Available N ot Available sulfamethoxa zole 800 mg-trimethop rim 160 mg tablet TAKE 1 TABLET BY MOUTH TWICE DAILY FOR 10 DAYS active Not Available Not Available No t Available triamcinolon e acetonide 0.1 % topical cream APPLY 1 APPLICATION TOPICALLY DAILY active Not Available Not Available No t Available bisoprolol fumarate 5 mg tablet TAKE 1 TABLET BY MOUTH TWICE A DAY active Not Available Not Available No t Available ibuprofen 400 mg tablet Take 1 tablet by mouth four times daily as needed for pain. active Not Available Not Available No t Available furosemide 20 mg tablet TAKE 1 TABLET BY MOUTH DAILY FOR 5 DAYS active Not Available Not Available N ot Available ketoconazole 2 % topical cream APPLY TOPICALLY TO AFFECTED AREA TWICE DAILY active Not Available Not Available No t Available fluticasone propionate 50 mcg/actuatio n nasal spray,suspen joaquim SHAKE LIQUID AND USE 1 SPRAY IN EACH NOSTRIL TWICE DAILY active Not Available Not Available Not Available amitriptylin e 100 mg tablet TAKE 1 TO 2 TABLETS BY MOUTH AT BEDTIME active Not Available Not Available No t Available doxycycline hyclate 100 mg tablet TAKE 1 TABLET BY MOUTH TWICE DAILY FOR 7 DAYS active Not Available Not Available No t Available lactulose 10 gram/15 mL oral solution TAKE 30 ML BY MOUTH DAILY NEEDED FOR CONSTIPATIO N active Not Available Not Available No t Available lubiprostone 24 mcg capsule active Not Available Not Available Not Available Linzess 290 mcg capsule TAKE ONE CAPSULE BY MOUTH EVERY DAY active Not Available Not Available No t Available Eliquis 2.5 mg tablet TAKE 1 TABLET BY MOUTH TWICE DAILY active Not Available Not Available No t Available Vitals Date Recorded Body height Body mass index (BMI) Body weight Provider Name and Address Organization Details Last Updated DateTime 08/15/2023 180.34 cm 34.9 kg/m2 812438.09 kwame laboy [place] [facility] [place] 08/15/2023 15:24:37 Social History None recorded. Functional Status None recorded. Mental Status None recorded. Family History Nothing Reported. Medical History No medical history recorded. Past Encounters Encounter ID Performer Location Encounter Start Date Encounter Closed Date Diagnosis/Indication Diagnosis SNOMED-CT Code Diagnosis ICD10 Code [id number] JONAS Leos [address] [place] [address] 08/15/2023 14:36:07 09/08/2023 13:40:30 Pain of left knee joint 8060397004 18248 M25.562 Osteoarthr itis of left knee joint 5161668799 10695 M17.12 Health Concerns Section Related Observation LastModified by Organization Detai ls LastModified Time None Recorded Concern Status LastModified by Organization Details LastModified Time None Recorded Advance Directives Directive None Recorded Payers Encounter Date Sequence Insurance Name Policy Number Policy [employer] Covered Member ID [employer] Member ID Guarantor Name 08/15/2023 2 [employer] (MEDICARE SUPPLEMENT) [id number] Dragan Wilhelm Rosendo [id number] Dragan Wilhelm Rosendo 08/15/2023 1 [place] [employer] Dragan Wilhelm Rosendo [id number] Dragan Wilhelm Rosendo Notes Date Note Type Note Provider Name and Address Organization Details Recorded Time 08/15/2023 text/html I am seeing the patient today under the supervision of Dr. Pena who was available but who did not see the patient. HPI: Dragan presents to the office today for an evaluation of his left knee. He indicates that he frequently falls secondary to his spinal cord ischemia. Lately he has noticed a clicking of his knee. This clicking is not painful. At times he will notice discomfort with ambulating. He takes ibuprofen on occasion. He denies catching and locking of the joint. He is here today for treatment recommendations. PMH/PSH/MEDS/ALL/FMH/ SOC HX/ROS are reviewed in detail per my medical intake sheet. General Exam: Vital signs are as noted below Mental status: Alert and lucid. Normal insight, affect and grooming. SQL DBA: Gross motor coordination is intact. No spasticity or clonus noted. EXAMINATION: The patient is well appearing and in no apparent distress. Alert and oriented x3. Gait is antalgic. {{Right Left*}} knee reveals no deformity upon inspection. No joint effusion, edema, erythema, ecchymosis, or lesions. Neurovascularly intact. No localized tenderness. ROM is full and pain free. No crepitus noted. Stability intact with anterior, posterior, and varus/valgus stress at both 0 and 30 degrees of flexion. Special testing negative including Steinmann's, flexion pinch, and patella grind maneuvers. 5/5 strength. Calf/leg compartments soft and compressible. Contralateral knee reveals no deformity upon inspection. No joint effusion, edema, erythema, ecchymosis, or lesions. Neurovascularly intact. No localized tenderness. ROM is full and pain free. No crepitus noted. Stability intact with anterior, posterior, and varus/valgus stress at both 0 and 30 degrees of flexion. Special testing negative including Steinmann's, flexion pinch, and patella grind maneuvers. 5/5 strength. Calf/leg compartments soft and compressible. Bilateral hip exam reveals painless passive range of motion. No instability. 5/5 strength. X-rays ordered, obtained and reviewed at [facility] today include an AP standing, Perez, and merchant view of bilateral knees. Lateral view of {{right left*}} knee. Images reveal moderate degenerative changes. No evidence for an acute fracture or lesion. IMPRESSION: {{Right Left* Bilater al}} knee osteoarthritis PLAN: The natural progression of osteoarthritis has been discussed in addition to conservative versus surgical treatment options. Currently the patient is not experiencing much discomfort. We reviewed oral medication, injection therapy, and physical therapy. The patient prefers to monitor his symptoms and if his pain increases he will call the office for an injection. Otherwise he will follow-up as needed. All questions have been answered. Estela Morales PA-C [address] [facility] [address], [place], [address], [facility] - [facility] 08/15/2023 21:57:36
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
--- OUTSIDE RECORDS SUMMARY | 2024-04-17 21:54 | XMS_ITS | Continuity of Care Document ---
Author Organization Wound Care Address [address] [place] [address]- Care Team Providers Care Haunted History Tour Guide Name Role Phone Maurizio PINEDA, Carly Camacho Primary Care Physician Encounter [facility] Date(s): 02/22/24 - 03/23/24 [address]ound [address] [place] [address] Attending Physician: Admjanki, Alexandr Admitting Physician: Admtr, Alexandr Referring Physician: Admtr, Ar8 Encounter Type: Triage Allergies, Adverse Reactions, Alerts Substance Criticality Severity [...] Refills, Maintenance, 08/09/23 12:01:00 PM EDT, Capsule, [facility][id number], Partial fill upon patient request if the [...] Refills, Maintenance, 09/02/23 7:49:00 PM EDT, Tablet, [facility] #[id number], Partial fill upon patient request if the [...] Gm, 0 Refills, Maintenance, 08/31/23 12:47:00 AMEDT, [place], Partial fill upon patient request if the [...] Refills, Maintenance, 06/06/23 1:41:00 PM EST, Cream, [facility] #[id number], Partial fill upon patient request if the [...] mL, 0 Refills, Maintenance, 11/03/2309:24:00 AM EDT, [facility] #[id number], 90, TAKE 30 ML BY MOUTH DAILY NEEDED FOR CONSTIPATION, 180, cm, 10/31/22 15:30:00 EDT, Height, 116, kg, 09/03/21 11:41:00 EDT, Dry Weight Start Date: 11/03/22 Status: Ordered Quantity: 2702.0 Unit: mL Repeat number: 1 pilocarpine 5 mg oral tablet 2 tablet, By Mouth, 3 times a day, # 180 tablet, 0 Refills, Maintenance, 03/20/23 3:08:00 PM EST, [facility] #[id number], 180, cm, 02/06/23 11:09:00 EDT, Height, 116, [...] Position: Reference Physician Member Role: PCP Address: [address] [place] [address] Telecom: Care Team Related Persons Name: TRAM GARCIA Insurance Providers Guarantor name: SILVINO GARCIA Health Plan Information #: 1 Payer: MEDICARE PART B OUTPT Member Number: NA Policy Number: NA Group Number: NA Health Plan Information #: 2 Payer: R H61 Member Number: NA Policy Number: NA Group Number: NA
--- OUTSIDE RECORDS SUMMARY | 2024-04-17 21:54 | XMS_ITS | Continuity of Care Document ---
Author Organization [facility] Address [address] [place] [address] Phone Care Team Providers Care Power Plant Installer Name Role Phone Thomas PINEDA FACS RVT Eamon FREEMAN Unavailable Unavailable Allergies, Adverse Reactions, Alerts Substance Reaction Status Criticality OXYCODONE HCL Active No Information CEPHALEXIN MONOHYDRATE Active No In formation oxycodone Active No Information Medications Medication Instructions Dosage Effective Dates (start - stop) Status Comments triamcinolone acetonide 0.1 % topical cream apply by topical route 2 times every day a thin layer to the affected area(s) 0.00 - Active Dispense (5) 80gm of tubes Xarelto 10 mg tablet Take 1 tablet by mouth twice a day for 1 month - Active gabapentin 800 mg tablet - Active bisoprolol fumarate 5 mg tablet - Active Amitiza 24 mcg capsule - Active lactulose 10 gram/15 mL (15 mL) oral solution - Active pilocarpine 5 mg tablet - Active ibuprofen 400 mg tablet - Active simethicone 180 mg capsule - Active senna 8.6 mg capsule - Active Claritin 10 mg tablet - Active melatonin 10 mg capsule - Active Procedures Procedure Date Office/Outpt E&M Established 15 Mins Dec Duplex Scan-extrem Veins; Uni/ Endovenous Laser, 1st Vein Endovenous laser vein addon Office/Outpt E&M Established 15 Mins Oct Duplex Scan-extrem Veins; Comp Office/Outpt E&M Established 15 Mins September Advance Directives Directive Yes / No Effective Date File Name No Information Encounters Encounter Description Practice Location Reason(s) For Visit Diagnoses Date Provider Providers Copied on Encounter Office/Outpt E&M Established 15 Mins [facility], [address] [place] [address] [address], [place], [id number], [place] tel:[phone] CV[facility] - [facility] Chronic venous hypertension w oth comp of r low extrem 3 Thomas PINEDA FACS RVT LYDIA Hawk. [address], [address], [place], [address], [place]. tel:[phone] Referring Provider: Eamon Guzman MD, FACS RVCasey [facility], [address] [place] [address], [place], [address]. tel:[phone] [facility], [address] [place] [address] [facility] [address], [place], [id number], [place] tel:[phone] CV - [facility] Encntr for f/u exam aft trtmt for cond oth than malig neoplmVenous insufficiency (chronic) (peripheral) 3 Thomas HOLLYT LYDIA Hw[facility]. [facility], [place] [address], [facility] [place], [address], [place]. tel:[phone] Referring Provider: Eamon Guzman MD, FACS, RVT [facility], [address] [place] [address], [place], [address]. tel:[phone] [facility], [address] [place] [address] [facility] [address], [place], [id number], [place] tel:[phone] [facility] Chronic venous hypertension w inflammation of r low extrem 3 Thomas PINEDA FACS RVT LYDIA [place]. [address], [address], [place], [address], [place]. tel:[phone] Referring Provider: Eamon Guzman MD, FACS RVT RP, [facility] [place] [address], [place], [address]. tel:[phone] Office/Outpt E&M Established 15 Mins [facility], [address] [place] [address] [address], [place], [id number], [place] tel:[phone] [facility] Chronic venous hypertension w/o comp of r low extrem 3 Thomas PINEDA FACS T VI Eamon Hawk. [address] [facility], [place] [address], [place], [address], [place]. tel:[phone] Referring Provider: Eamon Guzman MD, FACS T [facility], [address] [place] [address] Suite [facility], [place], [address]. tel:[phone] [facility], [address] [place] [address] [facility] [address] [address], [id number], [place] tel:[phone] [facility] Venous insufficiency (chronic) (peripheral)Pa in in right legPain in left leg 3 Thomas PINEDA FACS [facility] Eamon Hawk. [address] [place] [address], [place] [address], [facility] [place], [address], [place]. [phone] Referring Provider: Eamon Guzman MD, FACS [facility], [address] [place] [address] Suite [facility], [place], [address]. tel:[phone] Office/Outpt E&M Established 15 Mins [facility], [address] [place] [address] [address] [address], [id number], [place] tel:[phone] [facility] Chronic venous hypertension w/o comp of bilateral low extrm 3 Thomas PINEDA FACS T RPVI Eamon Hawk. [address] [facility], Suite [facility], [facility] [place], [address], [place]. tel:[phone] Referring Provider: Eamon Guzman MD, FACS T [facility], [address] [place] [address] Suite [facility], [place], [address]. tel:[phone] Family History Family Member Type Diagnosis Age At Onset No Information Payers Payer name Insurance type Covered libertarian ID Authoriza tion(s) Medicare MARLI KUMAR [id number] [facility] [id number] Social History Type Description Quantity Date Captured Comments Alcohol Use Details No Caffeine Use Details Unknown Tobacco Use Status Never smoked tobacco 2022 Smoking Status Never smoker Non-Smoking Tobacco Use Details : No Details Available : No Details Available Sex Male Chief Complaint And Reason For Visit No Information Reason For Referral Reason For Referral No Information Plan Of Treatment Date Type Action Status Goal Tobacco cessation counseling completed History Of Present Illness Encounter Date Complaint History Of Prese nt Illness No Information Functional Status Date Functional Assessmen t No Information Instructions Date Instruction Additional Infor mation Patient education booklet given Related to Chrn Vns Hyprtnsn w/Compl (Pain Edema Swelling); RIGHT Patient education booklet given Related to Chrn Vns Hypertnsn w/o Compl; BILAT Assessments Type Assessment Date assessment Chronic venous hypertension w ot h comp of r low extrem Patient Care Teams Name Effective Dates (start - stop) Status Members No Information
== END ==
PROVIDERS: PCP Internal Medicine; Visit Provider Internal Medicine
DX: M25.572 Pain in left ankle and joints of left foot (principal); G89.29 Other chronic pain; G82.20 Paraplegia, unspecified; K30 Functional dyspepsia

== ENCOUNTER 2024-08-13 14:01 | Outpatient (AMB) | payer MEDICARE, OTHER, SELFPAY ==
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
[2024-08-13 14:14] VITALS: BP 124/64; PULSE 64; RESP 16; O2SAT 96; BMI 36.7
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
--- OUTSIDE RECORDS SUMMARY | 2024-08-13 17:09 | XMS_ITS | Encounter Summary ---
Author Organization [facility] Address [address] [place] [address] Care Team Providers Care Manager Labor Delivery Name Role Phone Mendoza Lawton MD Primary Care Provider Encounter Details Date Type Department Care Team (Late st Contact Info) Description 06/07/2024 Lab Requisition [facility] - Main Lab [address] [place] [address] Anca Haile NP [address] [facility] [address] [place] [address] Other retention of urine Social History Tobacco Use Types Packs/Day Years Used Date Smoking Tobacco: Never Smokeless Tobacco: Never Alcohol Use Standard Drinks/Week Comments Yes 0 (1 standard drink = 0.6 oz pur e alcohol) Sex and Gender Information Value Date Recorded Sex Assigned at Not on file Legal Sex Male 11:54 AM EST Gender Identity Not on file Sexual Orientation Not on file documented as of this encounter Plan of Treatment Not on file documented as of this encounter Procedures Procedure Name Priority Date/Time Associated Diagnosis Comments BACTERIAL IDENTIFICATION AND SUSCEPTIBILITY, AEROBIC Routine 06/06/2024 12:00 AM EST Other retention of urine documented in this encounter Results * (ABNORMAL) Bacterial identification and susceptibility, aerobic (06/06/2024 12:00 AM EST) Culture, Bacterial ID and Sensitivity Enterococcus faecalis(A) NALLELY 06/09/2024 10:13 AM EST [facility] Comment: The organism value for [...] Nitrofurantoin NALLELY <=16 ug/ml: Susceptible Anca Haile FRAME CATCHER LAB MICROBIOLOGY - GENERA L ORDERABLES Final Result [facility] [address] [place] [address], documented in this encounter Visit Diagnoses Diagnosis Other retention of urine documented in this encounter Care Teams Manager Labor Delivery Relationship Specialty Start Date End Date Mendoza Lawton MD [address] [place] [id number] PCP - General Internal Medicine 04/04/18 documented as of this encounter
== END 2024-08-13 15:03 | disposition home or self-care (01) ==
LOC: HO.HMCFM 14:02
PROVIDERS: PCP Internal Medicine; Visit Provider Internal Medicine
DX: G82.20 Paraplegia, unspecified (principal); N52.9 Male erectile dysfunction, unspecified; L91.8 Other hypertrophic disorders of the skin

== ENCOUNTER → 2024-08-13 14:01 | Outpatient (BNVA) | payer MEDICARE, OTHER, SELFPAY | PROVIDERS: PCP Internal Medicine; Visit Provider Internal Medicine | DX: Z13.89 Encounter for screening for other disorder (principal) | CPT/HCPCS: 96127; 99212 ==

== ENCOUNTER 2024-08-13 15:14 | Outpatient (REF) | payer MEDICARE, OTHER, SELFPAY ==
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
--- OUTSIDE RECORDS SUMMARY | 2024-08-13 18:13 | XMS_ITS | Encounter Summary ---
Author Organization [facility] Address [address] [place] [address] Care Team Providers Care Ring Packer Name Role Phone Mendoza Lawton MD Primary Care Provider Encounter Details Date Type Department Care Team (Late st Contact Info) Description 06/07/2024 Lab Requisition [facility] - Main Lab [address] [place] [address] Anca Haile NP [address] [facility] [address] [place] [address] Other retention of urine Social History Tobacco [...] Enterococcus faecalis(A) NALLELY 06/09/2024 10:13 AM EST [facility] ([facility] Comment: The organism value for this [...] Nitrofurantoin NALLELY <=16 ug/ml: Susceptible Anca Haile AIRCRAFT NAVIGATOR LAB MICROBIOLOGY - GENERA L ORDERABLES Final Result [facility] ([facility]) [facility] [address] [place] [address], documented in this encounter Visit Diagnoses Diagnosis Other retention of urine documented in this encounter Care Teams Ring Packer Relationship Specialty Start Date End Date Mendoza Lawton MD [address] [place] [id number] PCP - General Internal Medicine 04/04/18 documented as of this encounter
[2024-08-13 18:35] LABS: MANUAL DIFF FLAG NO
[2024-08-13 18:42] LABS: Basophils Percent Auto 0.6 % (0-2); Eosinophils Percent Auto 0.3 % (0-4); Hematocrit 43.4 % (42.0-52.0); Hemoglobin 14.4 g/dl (14.0-18.0); Imm Gran Abs Auto 0.02 X10*3/uL (0.00-0.03); Imm Gran Pct Auto 0.3 % (0.0-0.4); Lymphocytes Absolute Auto 1.2 X10*3/uL (1.2-4.9); Lymphocytes Percent Auto 16.5 % (20-40); Mean Corpuscular HGB Conc 33.2 g/dl (31.0-36.0); Mean Corpuscular Hemoglobin 31.6 pg (27.0-33.0); Mean Corpuscular Volume 95.2 fL (80.0-98.0); Mean Platelet Volume 10.2 fL (9.4-12.4); Monocytes Absolute Auto 0.6 X10*3/uL (0.1-1.2); Monocytes Percent Auto 7.7 % (2-11); Neutrophils Absolute Auto 5.4 x10*3/uL (2.0-8.3); Neutrophils Percent Auto 74.6 % (45-73); Platelet Count 239 X10*3/uL (160-400); Red Blood Count 4.56 X10*6/uL (4.60-5.80); Red Cell Distribution Width 13.4 % (11.0-16.0); White Blood Count 7.3 X10*3/uL (4.8-10.8)
[2024-08-13 18:56] LABS: Estimated Average Glucose 111 mg/dL; Hemoglobin A1C 140.9031 umol/L; Hemoglobin A1c % 5.5 % (<6.0); Total Hemoglobin (HGBA1C) 3851.5917 umol/L
[2024-08-13 19:07] LABS: Alkaline Phosphatase 77 U/L (39-117); Anion Gap 10 (12-20); Aspartate Amino Transferase 32 U/L (5-37); Bilirubin Total 0.6 mg/dL (0.0-1.0); Blood Urea Nitrogen 13 mg/dL (9-16); Calcium 8.9 mg/dL (8.4-10.2); Carbon Dioxide 22 mmol/L (22-29); Chloride 110 mmol/L (96-108); Cholesterol 191 mg/dL (<200); Estimated Glomerular Filt Rate > 60; Glucose Random 105 mg/dL (60-115); HDL Cholesterol 59 mg/dL (>40); LDL Cholesterol Calculated 99 mg/dL (<100); Potassium 3.8 mmol/L (3.3-5.1); Sodium 138 mmol/L (135-145); Total Protein 6.4 g/dL (6.5-8.0); Triglycerides 167 mg/dL (<150)
[2024-08-13 19:16] LABS: TSH reflex Free T4 0.63 uIU/mL (0.32-4.0)
[2024-08-13 19:20] LABS: Cortisol Random 6.6 ug/dL
[2024-08-13 19:32] LABS: Folate 5.6 ng/mL (> or = 4.0); Vitamin B12 270 pg/mL (200-900)
[2024-08-13 19:45] LABS: Alanine Aminotransferase 28 U/L (0-40)
[2024-08-20 10:19] LABS: Testosterone, Free 42.3 pg/mL (35.0-155.0); Testosterone, Total 461 ng/dL (250-1100)
== END 2024-08-13 15:15 | disposition home or self-care (01) ==
LOC: HO.WFDLDS 15:14
PROVIDERS: Visit Provider Internal Medicine
DX: I10 Essential (primary) hypertension (principal); N52.9 Male erectile dysfunction, unspecified; L91.8 Other hypertrophic disorders of the skin; G82.20 Paraplegia, unspecified; K30 Functional dyspepsia; R41.3 Other amnesia; Z79.899 Other long term (current) drug therapy; Z13.1 Encounter for screening for diabetes mellitus
CPT/HCPCS: 36415; 80053; 80061; 82533; 82607; 82746; 83036; 84402; 84403; 84443; 85025; 96127; 99212

== ENCOUNTER 2025-02-18 14:30 | Outpatient (AMB) | payer MEDICARE, OTHER, SELFPAY ==
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
[2025-02-18 14:46] VITALS: BP 167/101; PULSE 108; RESP 14; TEMP 36.2; O2SAT 98; BMI 36.1
--- OUTSIDE RECORDS SUMMARY | 2025-02-18 17:23 | XMS_ITS | Encounter Summary ---
Author Organization [facility] Address [address] [place] [address] Care Team Providers Care Event Planning Manager Name Role Phone Mendoza Lawton MD Primary Care Provider [phone] Encounter Details Date Type Department Care Team (Late st Contact Info) Description 06/07/2024 Lab Requisition [facility] - Main Lab [address] [facility] [place] [address] Anca Haile NP [address] [facility] [place] [address] [place] [address] Other retention of urine Social History Tobacco [...] Enterococcus faecalis(A) NALLELY 06/09/2024 10:13 AM EST [facility] ([facility]) [facility] Comment: The organism value for [...] Nitrofurantoin NALLELY <=16 ug/ml: Susceptible Anca Haile [facility] MICROBIOLOGY - GENERA L ORDERABLES Final Result [facility] ([facility]) [facility] [address] [place] [address], documented in this encounter Visit Diagnoses Diagnosis Other retention of urine documented in this encounter Care Teams Event Planning Manager Relationship Specialty Start Date End Date Mendoza Lawton MD [address] [place] [id number] PCP - General Internal Medicine 04/04/18 documented as of this encounter
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
--- OUTSIDE RECORDS SUMMARY | 2025-02-18 17:23 | XMS_ITS ---
Author Organization [facility] Care Team Providers Care Prison Librarian Name Role Phone Etelvina Robledo Unavailable Unavailable Sathya Mandujano Unavailable Unavailable Lise Jeffers Unavailable Unavailable Allergies and adverse reactions Code CodeSystem Substance Reaction Severity StartDate Concern Status Bactrim Unknown 09/04/2023 active 2231 RXNORM Keflex Unknown 09/04/2023 active 7804 RXNORM oxyCODONE Unknown 09/04/2023 active 7804 RXNORM OxyCONTIN Unknown 09/04/2023 active Care Team Name Role Address Phone Organization Dates Sathya Mandujano PCP [address] [facility] [address], [place], [address], [place] (Office): : [facility] 09/04/2023 - 10/16/2023 Etelvina Robledo [address] [facility] [address], [place], [address], [place] [facility] 09/04/2023 - 10/16/2023 Lise Jeffers [address] [facility] [address], [place], [address], [place] (Office): [facility] 09/04/2023 - 10/16/2023 Mental Status Section Date Assessment Total Score Description 10/16/2023 BIMS 15 cognitively int act CAM 0 No delirium ind icated PHQ-9 00 09/08/2023 BIMS 15 cognitively int act CAM 0 No delirium ind icated PHQ-9 00 Insurance Providers Problems Problem # Description Date of onset Resolved Date Code CodeSystem Concern Status 1 CELLULITIS OF UNSPECIFIED PART OF LIMB 09/04/[address] active 2 DISPLACED BICONDYLAR FRACTURE OF UNSPECIFIED TIBIA, SUBSEQUENT ENCOUNTER FOR CLOSED FRACTURE WITH ROUTINE HEALING 09/04/[address] active 3 ESSENTIAL (PRIMARY) HYPERTENSION 09/04/[address] active 4 INSOMNIA, UNSPECIFIED 09/04/[address] active 5 IRRITABLE BOWEL SYNDROME, UNSPECIFIED 09/04/[address] active 6 LOCALIZED EDEMA 09/04/[address] a ctive 7 MORBID (SEVERE) OBESITY DUE TO EXCESS CALORIES 09/04/[address] active 8 OTHER LACK OF COORDINATION 09/04/[address] active 9 PARAPLEGIA, UNSPECIFIED 09/04/[address] active 10 REPEATED FALLS 09/04/[address] ac tive 11 RHABDOMYOLYSIS 09/04/[address] ac tive 12 SJOGREN SYNDROME, UNSPECIFIED 09/04/[address] active 13 SPRAIN OF ANTERIOR CRUCIATE LIGAMENT OF UNSPECIFIED KNEE, SUBSEQUENT ENCOUNTER 09/04/[address] active 14 UNSPECIFIED PROTEIN-CALORIE MALNUTRITION 09/04/[address] active Reason for Referral No Reasons for Referral Entered Social History Social History Observation Description Start Date End Date Code Code System Current Smoking Status Tobacco smoking consumption unknown 974647266 SNOMED CT Sex Assigned At Male 1960 66726-9 LOINC Gender Identity Sexual Orientation Vital Signs Code Code System Vitals Name Values and Units Timing Information 91947-6 LOINC Pain Level Value=0.0 10/16/2023 9279-1 LOINC Respiratory Rate Value=18.0 Units=/m in 10/16/2023 8462-4 LOINC Blood Pressure-Diastolic Value=84 Un its=mmHg 10/16/2023 8480-6 LOINC Blood Pressure-Systolic Eskow=829 Un its=mmHg 10/16/2023 8310-5 [facility] Body Temperature Value=98.1 Units= F 10/16/2023 8867-4 [facility] Heart rate Value=79.0 Units=/min 02/2024 95650-7 [facility] O2 % BldC Oximetry Value=97.0 Units= % 10/16/2023 79347-0 [facility] Weight Bdkwb=124.4 Units=Lbs 08/2023 2339-0 [facility] Blood Sugar Urfdj=023.0 Units=mg/dL 10/02/2023 8302-2 [facility] Height Value=66.0 Units=Inches 09/05/2023
== END 2025-02-18 15:26 | disposition home or self-care (01) ==
LOC: HO.HMCFM 14:30
PROVIDERS: PCP Internal Medicine; Visit Provider Internal Medicine
DX: I10 Essential (primary) hypertension (principal); N52.9 Male erectile dysfunction, unspecified; G95.89 Other specified diseases of spinal cord

== ENCOUNTER → 2025-02-18 14:30 | Outpatient (BNVA) | payer MEDICARE, OTHER, SELFPAY | PROVIDERS: PCP Internal Medicine; Visit Provider Internal Medicine | DX: I10 Essential (primary) hypertension (principal); N52.9 Male erectile dysfunction, unspecified; G95.89 Other specified diseases of spinal cord; L91.8 Other hypertrophic disorders of the skin; Z87.820 Personal history of traumatic brain injury | CPT/HCPCS: 99212 ==

== ENCOUNTER 2025-03-14 15:33 | Outpatient (REF) | payer MEDICARE, OTHER, SELFPAY ==
--- OUTSIDE RECORDS SUMMARY | 2025-03-14 16:36 | XMS_ITS | Data Portability ---
Author Organization [facility], [facility] Address [address] [place] [address] Care Team Providers Care Commercial Appraiser Name Role Phone FREDI MULLER Primary Care Provider Assessment Encounter Date Assessment [...] obtained, and reviewed by me today at [facility] of the left tibia, two views, show [...] basis, especially if symptoms persist or worsen. [email or web address] Not available 05/21/2024 16:27:06 Plan of Treatment Reminders Order Date Submit Date Provider Last Modified By Organization Details Last Modified Time Details Appointments NEW PATIENT 10 2024 03:10P Doug Canela MD Not available Not available Not available Lab None recorded . Referral None recorded . Procedures None recorded . Surgeries None recorded . Imaging XR, knee, 3 view - 313- left knee 4 v new pt 2024 025 [facility], [address], [address], [place], [address], 05/31/2024 12:43:18 XR, knee, 3 view - 314 3v right knee new pt 2024 025 [facility], [address], [address], [place], [address], 05/31/2024 12:43:18 XR, tibia + fibula, 2 view - 313 LEFT TIBIA 2V NEW PT 2024 025 [facility], [address], [address], [place], [address], 05/31/2024 12:43:18 XR, knee, 4 or more view 2023 024 [email or web address], [address], [address], [place], [address], 08/15/2023 16:10:43 Medication Orders None recorded . Patient TargetsNo targets recorded. Patient InstructionsNo instructions [...] a4ajBk vP9nXo QUaueC m3YtLR FvZlgJ JJ8mAn HZtai3 1z3685 AC0Kqb 3mGUau nKiQtr MwF INTERFACE [facility] [address] [facility] [address], [place], [address], 05/21/2024 15:41:08 05/21/19 25 05/21/2024 XR, tibia + fibul a, 2 view http:/ [email or web address] ?Encry pted=s hAaTro YD8dLq bEUv6g %2BXZw aYqtaq 0bqfl% 2Fg9IQ a4ajBk vP9nXo QUaueC m3YtLR FvZlgJ JJ8mAn HZtai3 6c5390 AC0Kqb 3mGUau nKiQtr MwF INTERFACE [facility] [address], [place], [address], 05/21/2024 15:41:10 Result Notes Documentation Provider Name and Address Organization Details Recorded Time Xr, Tibia + Fibula, 2 View : [email or web address]? Encrypted=epZbJjlBB4yEitH Uv6g%6ECXswJpggl4leyp%2Fg 5VUm0zdFsdM4tOaYSvrgTk0Ri UKZaEnyJJZ4lBrOUvbb31d687 1OY7Rki3dTUxhtUpDzlYuH Not Available [facility] 05/21/2024 15:41: 09 Xr, Tibia + Fibula, 2 View : [email or web address] Encrypted=xcNlLohVD8gTfwW Uv6g%2FMGxeVbygp2smhh%2Fg 6PCt6rdGmpS5nRbYQpltUv9Fw APWkVblAUB0jVjMJzgr07s227 7EO9Xwi0jFQdnyYcEhzXmC Not Available [facility] 05/21/2024 15:41: 11 Problems Name Problem SNOMED Code Status Onset Date Resolution Date Notes Provider Name and Address Organization Details Recorded Time Pain of left knee joint 043201291527813 Active 2023 lily smith [facility] 4 15:24:04 Problem Notes None recorded. Medical Equipment None Reported. Allergies Allergen ID Allergen Name Allergen Category Reaction Reaction Severity Criticality Documentation Date Start Date Code Code System Note Provider Name and Address Organization Details Recorded Time 757706 Bactrim medicatio n Not available Not available Not available 08/15/2023 72595 9 RxNorm lily laboy [facility] 4 15:24:46 804968 Keflex medicatio n Not available Not available Not available 08/15/202310291 7 RxNorm lily smith [facility] 4 15:25:20 64646 oxycodone hydrochlo ride medicatio n Not available Not available Not available 07/10/20232018 05292 RxNorm Not Available [facility] 4 12:09:00 Medications Name Sig Start Date [...] Updated DateTime 05/21/2024 180.34 cm 34.9 kg/m2 007108.09 g GREGORY COLUNGA [facility] 05/21/2024 15:09:40 Date Recorded Body height Body mass index (BMI) Body weight Provider Name and Address Organization Details Last Updated DateTime 08/15/2023 180.34 cm 34.9 kg/m2 559004.09 g lily laboy [place] - [facility] 08/15/2023 15:24:37 Social History None recorded. Functional Status None recorded. Mental Status None recorded. Family History Nothing Reported. Medical History Condition Response Allergies/Hayfever N Coronary Artery Disease N Breathing or lung disorders N Anxiety/Depression N Emphysema N Nerve Disorders N Thyroid Problems N COPD N Pacemaker N Kidney/Bladder Problems N Anemia N Vascular Disease N Heart Trouble N Gastrointestinal Disease N Heart Attack (MD) N Cholesterol N Diabetes N Autoimmune disease [...] Diagnosis SNOMED-CT Code Diagnosis ICD10 Code Diagnosis IMO Codes Diagnosis Note [id number] JONAS Leos [address] [place] [address] 08/15/2023 14:36:07 09/08/2023 13:40:30 Pain of left knee joint 8707841952 98286 M25.562 Osteoarthr itis of left knee joint 4061624878 89206 M17.12 [id number] MD KORI Best - Ciara [address] [place] [address] 05/21/2024 14:29:59 05/31/2024 12:43:18 Closed fracture of right tibial plateau 0123995444 5968414 S82.141A 70811437 Closed fra cture of left tibial plateau 0603070737 2812676 S82.142A 47779476 Closed fra cture of shaft of left tibia 2699607157 3131499 S82.202A [id number] Health Concerns Section Related Observation LastModified by Organization Detai ls LastModified Time None Recorded Concern Status LastModified by Organization Details LastModified Time None Recorded Advance Directives Directive None Recorded Payers Insurance Date Sequence Insurance Name Policy Number Policy Menon Covered Member ID Menon Member ID Guarantor Name 05/31/2024 2 [employer] (MEDICARE SUPPLEMENT) [id number] Dragan Robbins [id number] Dragan Robbins 05/21/2024 1 [place] B-[place] [facility] [employer] Dragan Robbins [id number] Dragan Robbins Notes Date Note Type [...] and lucid. Normal insight, affect and grooming. SENIOR FRONT END WEB DEVELOPER: Gross motor coordination is intact. No spasticity or clonus noted. EXAMINATION: The patient is well appearing and in no apparent distress. Alert and oriented x3. Gait is antalgic. Left knee reveals no deformity upon inspection. No [...] strength. X-rays ordered, obtained and reviewed at [facility] today include an AP standing, Perez, and merchant view of bilateral knees. Lateral view of left knee. Images reveal moderate degenerative changes. No evidence for an acute fracture or lesion. IMPRESSION: Left knee osteoarthritis PLAN: The natural progression of [...] have been answered. Estela Morales PA-C [address], [place], [address], [facility] - [facility] 08/15/2023 21:57:36
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
[2025-03-14 18:00] LABS: MANUAL DIFF FLAG NO
[2025-03-14 18:35] LABS: Hematocrit 47.5 % (42.0-52.0); Hemoglobin 15.7 g/dl (14.0-18.0); Imm Gran Abs Auto 0.02 X10*3/uL (0.00-0.03); Imm Gran Pct Auto 0.3 % (0.0-0.4); Lymphocytes Absolute Auto 1.9 X10*3/uL (1.2-4.9); Mean Corpuscular HGB Conc 33.1 g/dl (31.0-36.0); Mean Corpuscular Hemoglobin 30.7 pg (27.0-33.0); Mean Corpuscular Volume 92.8 fL (80.0-98.0); NRBC Abs Auto 0.000 X10*3/uL (0.0-0.012); NRBC Pct Auto 0.0 /100WBC (0.0-0.2); Platelet Count 254 X10*3/uL (160-400); Red Blood Count 5.12 X10*6/uL (4.60-5.80); White Blood Count 6.7 X10*3/uL (4.8-10.8)
[2025-03-14 18:38] LABS: Alanine Aminotransferase 30 U/L (0-40); Albumin Level 4.3 g/dL (3.5-5.0); Alkaline Phosphatase 88 U/L (39-117); Anion Gap 10 (12-20); Aspartate Amino Transferase 48 U/L (5-37); Blood Urea Nitrogen 14 mg/dL (9-16); Calcium 8.9 mg/dL (8.4-10.2); Carbon Dioxide 24 mmol/L (22-29); Chloride 107 mmol/L (96-108); Cholesterol 208 mg/dL (<200); Estimated Glomerular Filt Rate > 60; HDL Cholesterol 63 mg/dL (>40); Iron 76 mcg/dL (45-160); Percent Iron Saturation 25 % (15-50); Potassium 4.1 mmol/L (3.3-5.1); Sodium 137 mmol/L (135-145); Total Iron Binding Capacity 300 mcg/dL (228-428); Total Protein 6.7 g/dL (6.5-8.0); Triglycerides 209 mg/dL (<150); Unsaturated Iron Binding 224 ug/dL
[2025-03-19 00:04] LABS: Arsenic, Blood <3 mcg/L (<23); Lead, Blood <1.0 mcg/dL (<3.5); Mercury, Blood <4 mcg/L (<=10)
== END 2025-03-14 15:34 | disposition home or self-care (01) ==
LOC: HO.WFDLDS 15:33
PROVIDERS: Visit Provider Internal Medicine
DX: R53.83 Other fatigue (principal); I10 Essential (primary) hypertension; K30 Functional dyspepsia; E66.9 Obesity, unspecified; N52.9 Male erectile dysfunction, unspecified
CPT/HCPCS: 36415; 80053; 80061; 82175; 83540; 83655; 83825; 84443; 85025